=== PATIENT | male | born 1980 | race Caucasian/White ===

== ENCOUNTER 2024-04-22 10:27 | Emergency (ER) | payer SELFPAY ==
[2024-04-22] VITALS (13 sets, daily range): BP systolic 134–170; BP diastolic 95–112
[~2024-04-22] VITALS: Ht 175.3 cm; Wt 90.7 kg
[2024-04-22] MEDS ORDERED: hydroCHLOROthiazide 12.5 MG/CAP PO ONE (12:25)
[2024-04-22] MEDS ORDERED: LISINOPRIL 20 MG/TAB PO ONE (12:25)
[2024-04-22 12:33] LABS: BASO% 0.5 % (0-3); EOS% 0.7 % (0-8); HEMOGLOBIN 18.4 g/dl (14.0-18.0); IMMATURE GRANULOCYTES 0.3 % (0.0-5.0); LYMPH% 11.3 % (15-41); MEAN CORPUSCULAR HGB 32.3 pG CALC (26.0-32.0); MEAN CORPUSCULAR HGB CONC 34.7 g/dL CAL (32.0-36.0); MONO% 10.9 % (2-13); NEUT# 6.66 thou/uL (1.82-7.42); NEUT% 76.3 % (42-76); RED BLOOD COUNT 5.7 mill/uL (4.70-6.10); RED CELL DISTRI WIDTH 12.2 % (11.5-15.5)
[2024-04-22 12:40] LABS: ALKALINE PHOSPHATASE 51 u/l (38-126); ANION GAP 16 (6-22 (CALC)); BILIRUBIN, TOTAL 1.5 mg/dL (0.2-1.3); BUN 10 mg/dL (9-20); BUN/CREATININE RATIO 11 (12-20 (CALC)); CARBON DIOXIDE 25 mmol/l (22-30); CHLORIDE 99 mmol/l (95-108); CREATININE 0.9 mg/dL (0.7-1.3); ESTIMATED GFR 109 ML/MIN (>=90 (CALC)); POTASSIUM 4.4 mmol/l (3.5-5.1); SGOT/AST 49 u/l (17-59); SODIUM 135 mmol/l (137-146); TOTAL PROTEIN 8.2 g/dL (6.3-8.2)
[2024-04-22] MEDS ORDERED: HYDROXYZ HCL25 MG PO (13:36)
[2024-04-22] MEDS ORDERED: LISINOPRIL40 MG PO (13:36)
== END 2024-04-22 14:18 | disposition home or self-care (01) | DRG 305 ==
LOC: ED 10:27
PROVIDERS: Family Medicine
DX: I10 Essential (primary) hypertension (principal)